=== PATIENT | female | born 1970 | race Caucasian/White ===

== ENCOUNTER 2018-08-26 07:45 | Emergency (ER) | payer MEDICAID ==
[~2018-08-26] VITALS: Ht 162.6 cm; Wt 90.7 kg
[2018-08-26] MEDS ORDERED: NEBULIZER MISCELL (07:56)
[2018-08-26] MEDS ORDERED: ACCUNEB SO1.25 MG/1 INH (07:56)
[2018-08-26] MEDS ORDERED: NORCO 5-325 TA1 EAC1 PO (10:29)
[2018-08-26 10:46] VITALS: BP 182/118
== END 2018-08-26 10:46 | disposition home or self-care (01) ==
LOC: M.ERS 07:45
DX: S70.02XA Contusion of left hip, initial encounter (principal); S90.31XA Contusion of right foot, initial encounter; I10 Essential (primary) hypertension; F31.9 Bipolar disorder, unspecified; Z88.0 Allergy status to penicillin; Z88.8 Allergy status to other drugs, medicaments and biological substances; V48.4XXA Person boarding or alighting a car injured in noncollision transport accident, initial encounter; Y93.89 Activity, other specified; Y92.89 Other specified places as the place of occurrence of the external cause; Y99.8 Other external cause status

== ENCOUNTER 2019-07-18 06:46 | Emergency (ER) | payer MEDICAID ==
[~2019-07-18] VITALS: Ht 162.6 cm; Wt 90.7 kg
[~2019-07-18 06:46] MED LIST: ACCUNEB SO1.25 MG/1 INH; NEBULIZER MISCELL; NORCO 5-325 TA1 EAC1 PO
[2019-07-18 07:36] LABS: URINE BILIRUBIN NEGATIVE (Negative); URINE BLOOD TRACE (Negative); URINE CLARITY CLEAR; URINE COLOR YELLOW; URINE GLUCOSE-RANDOM NEGATIVE (Negative); URINE KETONES NEGATIVE (Negative); URINE LEUKOCYTES-REFLEX NEGATIVE (Negative); URINE PROTEIN NEGATIVE (Negative); URINE SPECIFIC GRAVITY >= 1.030 (1.005-1.030); URINE UROBILINOGEN 0.2 E.U./dl (0.2-1.0)
[2019-07-18 07:38] LABS: URINE NITRITE-REFLEX POSITIVE (Negative)
[2019-07-18 07:51] LABS: BACTERIA-REFLEX >30 Many /HPF (None Seen); CASTS None Seen /LPF (None Seen); CRYSTALS None Seen /LPF (None Seen); MUCUS None Seen strn/LPF (None Seen); SQUAMOUS 4-10 Moderate /LPF (0-3); URINE RBC 0-2 Rare /HPF (0-2); URINE WBC-REFLEX 0-5 Rare /HPF (0-5)
[2019-07-18] MEDS ORDERED: BACTRIM DS TAB1 EAC1 PO (08:03)
[2019-07-18 08:22] VITALS: BP 166/112
== END 2019-07-18 08:25 | disposition home or self-care (01) ==
LOC: M.ERS 06:46
PROVIDERS: Emergency Medicine Emergency Medical Services
DX: N39.0 Urinary tract infection, site not specified (principal); I10 Essential (primary) hypertension; F31.9 Bipolar disorder, unspecified; F17.210 Nicotine dependence, cigarettes, uncomplicated; Z90.49 Acquired absence of other specified parts of digestive tract; Z88.0 Allergy status to penicillin; Z88.8 Allergy status to other drugs, medicaments and biological substances

== ENCOUNTER 2020-01-20 18:03 | Emergency (ER) | payer MEDICAID ==
[~2020-01-20] VITALS: Ht 162.6 cm; Wt 90.7 kg
[~2020-01-20 18:03] MED LIST changes: +BACTRIM DS TAB1 EAC1 PO
[2020-01-20] MEDS ORDERED: CLEOCIN HCL300 MG PO (18:25)
[2020-01-20] MEDS ORDERED: NORCO 5-325 TA1 EAC2 PO (18:25)
[2020-01-20] MEDS ORDERED: IBUPROFEN 800800 M1 PO (18:25)
[2020-01-20 18:35] VITALS: BP 155/102
== END 2020-01-20 18:35 | disposition home or self-care (01) ==
LOC: M.ERS 18:03
DX: S02.5XXA Fracture of tooth (traumatic), initial encounter for closed fracture (principal); K04.7 Periapical abscess without sinus; F32.9 Major depressive disorder, single episode, unspecified; K02.9 Dental caries, unspecified; I10 Essential (primary) hypertension; F17.210 Nicotine dependence, cigarettes, uncomplicated; Z88.0 Allergy status to penicillin; Z88.8 Allergy status to other drugs, medicaments and biological substances; X58.XXXA Exposure to other specified factors, initial encounter; Y93.89 Activity, other specified; Y92.89 Other specified places as the place of occurrence of the external cause; Y99.8 Other external cause status

== ENCOUNTER 2020-02-04 01:51 | Emergency (ER) | payer MEDICAID ==
[~2020-02-04] VITALS: Ht 162.6 cm; Wt 90.7 kg
[~2020-02-04 01:51] MED LIST changes: +CLEOCIN HCL300 MG PO; +IBUPROFEN 800800 M1 PO; +NORCO 5-325 TA1 EAC2 PO
[2020-02-04] MEDS ORDERED: ALBUTEROL2.5 MG/0.1 INH (02:01)
[2020-02-04] MEDS ORDERED: PROAIR HFA8.5 GM INH (02:01)
[2020-02-04] MEDS ORDERED: IBUPROFEN 800800 MG PO (02:25)
[2020-02-04] MEDS ORDERED: HYDROCODON-ACE1 EAC7 PO (02:25)
[2020-02-04] MEDS ORDERED: CLINDAMYCIN HC150 MG PO (02:25)
[2020-02-04 02:40] VITALS: BP 131/102
== END 2020-02-04 02:40 | disposition home or self-care (01) ==
LOC: M.ERS 01:51
DX: K05.10 Chronic gingivitis, plaque induced (principal); K02.9 Dental caries, unspecified; I10 Essential (primary) hypertension; Z88.0 Allergy status to penicillin; Z88.8 Allergy status to other drugs, medicaments and biological substances

== ENCOUNTER 2020-06-05 20:29 | Emergency (ER) | payer MEDICAID ==
[~2020-06-05] VITALS: Ht 162.6 cm; Wt 90.7 kg
[~2020-06-05 20:29] MED LIST changes: +ALBUTEROL2.5 MG/0.1 INH; +CLINDAMYCIN HC150 MG PO; +HYDROCODON-ACE1 EAC7 PO; +IBUPROFEN 800800 MG PO; +PROAIR HFA8.5 GM INH
[2020-06-05] MEDS ORDERED: Magic Mouthwash SWISH&SPIT (22:16)
[2020-06-05] MEDS ORDERED: ACETAMINOPHEN-1 EAC2 PO (22:16)
[2020-06-05] MEDS ORDERED: IBUPROFEN 600600 M1 PO (22:16)
[2020-06-05] MEDS ORDERED: CLEOCIN HCL150 MG PO (22:16)
[2020-06-05 22:36] VITALS: BP 127/88
== END 2020-06-05 22:35 | disposition home or self-care (01) ==
LOC: M.ERS 20:29
DX: A69.1 Other Vincent's infections (principal); I10 Essential (primary) hypertension; F17.210 Nicotine dependence, cigarettes, uncomplicated; Z88.0 Allergy status to penicillin; Z88.8 Allergy status to other drugs, medicaments and biological substances

== ENCOUNTER 2020-09-08 23:48 | Emergency (ER) | payer MEDICAID ==
[~2020-09-08] VITALS: Ht 162.6 cm; Wt 81.7 kg
[~2020-09-08 23:48] MED LIST changes: +ACETAMINOPHEN-1 EAC2 PO; +CLEOCIN HCL150 MG PO; +IBUPROFEN 600600 M1 PO; +Magic Mouthwash SWISH&SPIT
[2020-09-08] MEDS ORDERED: ALBUTEROL2.5 MG/31 INH (23:58)
[2020-09-09] MEDS ORDERED: KEFLEX250 MG PO (00:49)
[2020-09-09 00:54] VITALS: BP 177/78
== END 2020-09-09 00:55 | disposition home or self-care (01) ==
LOC: M.ERS 23:48
DX: S71.112A Laceration without foreign body, left thigh, initial encounter (principal); F17.210 Nicotine dependence, cigarettes, uncomplicated; I10 Essential (primary) hypertension; Z88.0 Allergy status to penicillin; Z88.8 Allergy status to other drugs, medicaments and biological substances; W22.8XXA Striking against or struck by other objects, initial encounter; Y93.89 Activity, other specified; Y92.89 Other specified places as the place of occurrence of the external cause; Y99.8 Other external cause status